=== PATIENT | male | born 1960 | race Caucasian/White ===

== ENCOUNTER 2016-07-08 15:30 | Emergency (ER) | payer OTHER ==
[~2016-07-08] VITALS: Ht 177.8 cm; Wt 77.3 kg
[2016-07-08 15:33] VITALS: BP 189/90; PULSE 117; RESP 30; O2SAT 99
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
[2016-07-08 16:00] VITALS: BP 167/98; PULSE 112; RESP 23; O2SAT 98
[2016-07-08 16:44] LABS: BASOPHILS % (AUTO) 0.6 % (0-3); EOSINOPHILS % (AUTO) 1.2 % (0-5); MONOCYTES % (AUTO) 16.8 % (4-12); Mean Corpuscular Hemoglobin 33.3 pg (27.0-35.0); Mean Corpuscular Volume 92.2 fL (81-100); NEUTROPHILS % (AUTO) 60.1 % (40-74); Platelet Count 164 bil/L (150-400)
--- NOTE | 2016-07-08 16:44 | DRSVH ---
PROCEDURE: X-RAY CHEST ONE VIEW, PORTABLE ([id number]) INDICATIONS: Heart palpatations TECHNIQUE: One view of the chest was acquired. COMPARISON: [facility], CR, XR CHEST 1VW (PORTABLE), 06/06/2016, 13:45. FINDINGS: Surgical changes and devices: None. Lungs and pleura: No pleural effusions or pneumothorax. Lungs are clear. Mediastinum: Mediastinal contours appear normal. Heart size is normal. Bones and chest wall: No suspicious bony lesions. Overlying soft tissues appear unremarkable. IMPRESSION: Normal for age. Dictated by: José Miguel Hancock M.D. on 07/08/2016 at 16:42 Approved by: José Miguel Hancock M.D. on 07/08/2016 at 16:42
[2016-07-08] MEDS ORDERED: 0.9% Sodium Chloride 1,000 ML IV ONE (16:50)
[2016-07-08] MEDS ORDERED: LORazepam 1 mg Tablet PO ONE (16:50)
[2016-07-08 17:15] VITALS: BP 174/94; PULSE 93; RESP 16; O2SAT 96
[2016-07-08 17:54] LABS: Magnesium 1.7 mg/dL (1.6-2.6); TROPONIN T < 0.010 ug/L (0.0-0.011)
[2016-07-08 18:23] VITALS: BP 170/87; PULSE 95; RESP 20; O2SAT 97
[2016-07-08 18:34] VITALS: BP 170/87; PULSE 95; RESP 20; O2SAT 97
== END 2016-07-08 18:35 | disposition home or self-care (01) ==
LOC: SED 15:30
DX: R07.89 Other chest pain (principal); E80.6 Other disorders of bilirubin metabolism; F41.9 Anxiety disorder, unspecified; R74.0 Nonspecific elevation of levels of transaminase and lactic acid dehydrogenase [LDH]; R06.02 Shortness of breath; R00.0 Tachycardia, unspecified; F10.20 Alcohol dependence, uncomplicated; F15.10 Other stimulant abuse, uncomplicated; F17.200 Nicotine dependence, unspecified, uncomplicated; F12.10 Cannabis abuse, uncomplicated; R52 Pain, unspecified
CPT/HCPCS: 36415; 71010; 80053; 82948; 83735; 84484; 85025; 93005; 96360; 99285; J7030